=== PATIENT | male | born 1935 | race Caucasian/White ===

== ENCOUNTER 2024-05-13 12:35 | Outpatient (CLI) | payer MEDICARE, SELFPAY | END 2024-05-13 12:36 | disposition home or self-care (01) | LOC: WOUND 12:41 | PROVIDERS: PCP Internal Medicine; Visit Provider Nurse Practitioner Family | DX: S00.01XA Abrasion of scalp, initial encounter (principal); L98.492 Non-pressure chronic ulcer of skin of other sites with fat layer exposed; W18.00XA Striking against unspecified object with subsequent fall, initial encounter; Y92.002 Bathroom of unspecified non-institutional (private) residence as the place of occurrence of the external cause | CPT/HCPCS: 11042; G0463 ==

== ENCOUNTER 2024-05-23 13:19 | Outpatient (CLI) | payer MEDICARE, SELFPAY | END 2024-05-23 13:20 | disposition home or self-care (01) | LOC: WOUND 13:19 | PROVIDERS: PCP Internal Medicine; Visit Provider Nurse Practitioner Family | DX: I10 Essential (primary) hypertension (principal); L98.492 Non-pressure chronic ulcer of skin of other sites with fat layer exposed; S00.01XA Abrasion of scalp, initial encounter; W18.00XA Striking against unspecified object with subsequent fall, initial encounter | CPT/HCPCS: 97597; 97598 ==

== ENCOUNTER 2024-06-03 14:41 | Outpatient (CLI) | payer MEDICARE, SELFPAY | END 2024-06-03 14:42 | disposition home or self-care (01) | LOC: WOUND 14:42 | PROVIDERS: PCP Internal Medicine; Visit Provider Nurse Practitioner Family | DX: I10 Essential (primary) hypertension (principal); L98.492 Non-pressure chronic ulcer of skin of other sites with fat layer exposed | CPT/HCPCS: 11042 ==

== ENCOUNTER 2024-06-10 14:33 | Outpatient (CLI) | payer MEDICARE, SELFPAY | END 2024-06-10 14:34 | disposition home or self-care (01) | LOC: WOUND 14:33 | PROVIDERS: PCP Internal Medicine; Visit Provider Nurse Practitioner Family | DX: I10 Essential (primary) hypertension (principal); L98.492 Non-pressure chronic ulcer of skin of other sites with fat layer exposed | CPT/HCPCS: 97597 ==

== ENCOUNTER 2024-06-17 14:37 | Outpatient (CLI) | payer MEDICARE, SELFPAY | END 2024-06-17 14:38 | disposition home or self-care (01) | LOC: WOUND 14:37 | PROVIDERS: PCP Internal Medicine; Visit Provider Nurse Practitioner Family | DX: I10 Essential (primary) hypertension (principal); L98.492 Non-pressure chronic ulcer of skin of other sites with fat layer exposed | CPT/HCPCS: 97597 ==

== ENCOUNTER 2024-06-24 14:25 | Outpatient (CLI) | payer MEDICARE, SELFPAY | END 2024-06-24 14:26 | disposition home or self-care (01) | LOC: WOUND 14:25 | PROVIDERS: PCP Internal Medicine; Visit Provider Family Medicine | DX: L98.492 Non-pressure chronic ulcer of skin of other sites with fat layer exposed (principal); I10 Essential (primary) hypertension | CPT/HCPCS: G0463 ==

== ENCOUNTER 2024-07-01 14:28 | Outpatient (CLI) | payer MEDICARE, SELFPAY | END 2024-07-01 14:29 | disposition home or self-care (01) | LOC: WOUND 14:31 | PROVIDERS: PCP Internal Medicine; Visit Provider Nurse Practitioner Family | DX: I10 Essential (primary) hypertension (principal); L98.492 Non-pressure chronic ulcer of skin of other sites with fat layer exposed | CPT/HCPCS: 11042 ==

== ENCOUNTER 2024-07-08 14:15 | Outpatient (CLI) | payer MEDICARE, SELFPAY | END 2024-07-08 14:16 | disposition home or self-care (01) | LOC: WOUND 14:15 | PROVIDERS: PCP Internal Medicine; Visit Provider Nurse Practitioner Family | DX: I10 Essential (primary) hypertension (principal); L98.492 Non-pressure chronic ulcer of skin of other sites with fat layer exposed | CPT/HCPCS: 11102; 88305 ==

== ENCOUNTER 2024-07-15 14:12 | Outpatient (CLI) | payer MEDICARE, SELFPAY | END 2024-07-15 14:13 | disposition home or self-care (01) | LOC: WOUND 14:13 | PROVIDERS: PCP Internal Medicine; Visit Provider Nurse Practitioner Family | DX: I10 Essential (primary) hypertension (principal); L98.492 Non-pressure chronic ulcer of skin of other sites with fat layer exposed | CPT/HCPCS: 11042 ==

== ENCOUNTER 2024-07-22 14:16 | Outpatient (CLI) | payer MEDICARE, SELFPAY | END 2024-07-22 14:17 | disposition home or self-care (01) | LOC: WOUND 14:16 | PROVIDERS: PCP Internal Medicine; Visit Provider Surgery | DX: I10 Essential (primary) hypertension (principal); L98.492 Non-pressure chronic ulcer of skin of other sites with fat layer exposed | CPT/HCPCS: G0463 ==

== ENCOUNTER 2024-07-29 14:17 | Outpatient (CLI) | payer MEDICARE, SELFPAY | END 2024-07-29 14:18 | disposition home or self-care (01) | LOC: WOUND 14:17 | PROVIDERS: PCP Internal Medicine; Visit Provider Nurse Practitioner Family | DX: I10 Essential (primary) hypertension (principal); L98.492 Non-pressure chronic ulcer of skin of other sites with fat layer exposed | CPT/HCPCS: 17250 ==

== ENCOUNTER 2024-08-05 13:24 | Outpatient (CLI) | payer MEDICARE, SELFPAY | END 2024-08-05 13:25 | disposition home or self-care (01) | PROVIDERS: PCP Internal Medicine; Visit Provider Nurse Practitioner Family | DX: I10 Essential (primary) hypertension (principal); L98.492 Non-pressure chronic ulcer of skin of other sites with fat layer exposed | CPT/HCPCS: G0463 ==

== ENCOUNTER 2024-08-12 14:21 | Outpatient (CLI) | payer MEDICARE, SELFPAY | END 2024-08-12 14:22 | disposition home or self-care (01) | LOC: WOUND 14:21 | PROVIDERS: PCP Internal Medicine; Visit Provider Nurse Practitioner Family | DX: I10 Essential (primary) hypertension (principal); L98.492 Non-pressure chronic ulcer of skin of other sites with fat layer exposed | CPT/HCPCS: G0463 ==

== ENCOUNTER 2024-08-17 13:45 | Outpatient (CLI) | payer MEDICARE, SELFPAY | END 2024-08-17 13:46 | disposition home or self-care (01) | LOC: WOUND 13:45 | PROVIDERS: PCP Internal Medicine; Visit Provider Nurse Practitioner Family | DX: I10 Essential (primary) hypertension (principal); L98.492 Non-pressure chronic ulcer of skin of other sites with fat layer exposed | CPT/HCPCS: 15275; Q4151 ==

== ENCOUNTER 2024-08-26 14:16 | Outpatient (CLI) | payer MEDICARE, SELFPAY | END 2024-08-26 14:17 | disposition home or self-care (01) | LOC: WOUND 14:17 | PROVIDERS: PCP Internal Medicine; Visit Provider Nurse Practitioner Family | DX: I10 Essential (primary) hypertension (principal); L98.492 Non-pressure chronic ulcer of skin of other sites with fat layer exposed | CPT/HCPCS: G0463 ==

== ENCOUNTER 2024-08-31 11:18 | Outpatient (CLI) | payer MEDICARE, SELFPAY | END 2024-08-31 11:19 | disposition home or self-care (01) | LOC: WOUND 11:18 | PROVIDERS: PCP Internal Medicine; Visit Provider Nurse Practitioner Family | DX: I10 Essential (primary) hypertension (principal); L98.492 Non-pressure chronic ulcer of skin of other sites with fat layer exposed | CPT/HCPCS: 15275; Q4151 ==

== ENCOUNTER 2024-09-07 11:26 | Outpatient (CLI) | payer MEDICARE, SELFPAY | END 2024-09-07 11:27 | disposition home or self-care (01) | LOC: WOUND 11:26 | PROVIDERS: PCP Internal Medicine; Visit Provider Nurse Practitioner Family | DX: I10 Essential (primary) hypertension (principal); L98.492 Non-pressure chronic ulcer of skin of other sites with fat layer exposed | CPT/HCPCS: G0463 ==

== ENCOUNTER 2024-09-14 11:20 | Outpatient (CLI) | payer MEDICARE, SELFPAY | END 2024-09-14 11:21 | disposition home or self-care (01) | LOC: WOUND 11:20 | PROVIDERS: PCP Internal Medicine; Visit Provider Nurse Practitioner Family | DX: I10 Essential (primary) hypertension (principal); L98.492 Non-pressure chronic ulcer of skin of other sites with fat layer exposed | CPT/HCPCS: 17250 ==

== ENCOUNTER 2024-09-21 11:35 | Outpatient (CLI) | payer MEDICARE, SELFPAY | END 2024-09-21 11:36 | disposition home or self-care (01) | LOC: WOUND 11:35 | PROVIDERS: PCP Internal Medicine; Visit Provider Family Medicine | DX: I10 Essential (primary) hypertension (principal); L98.492 Non-pressure chronic ulcer of skin of other sites with fat layer exposed | CPT/HCPCS: 15275; Q4151 ==

== ENCOUNTER 2024-09-28 11:24 | Outpatient (CLI) | payer MEDICARE, SELFPAY | END 2024-09-28 11:25 | disposition home or self-care (01) | LOC: WOUND 11:24 | PROVIDERS: PCP Internal Medicine; Visit Provider Physician Assistant | DX: I10 Essential (primary) hypertension (principal); L98.492 Non-pressure chronic ulcer of skin of other sites with fat layer exposed | CPT/HCPCS: G0463 ==

== ENCOUNTER 2024-10-05 11:17 | Outpatient (CLI) | payer MEDICARE, SELFPAY | END 2024-10-05 11:18 | disposition home or self-care (01) | LOC: WOUND 11:17 | PROVIDERS: PCP Internal Medicine; Visit Provider Nurse Practitioner Family | DX: I10 Essential (primary) hypertension (principal); L98.492 Non-pressure chronic ulcer of skin of other sites with fat layer exposed | CPT/HCPCS: G0463 ==

== ENCOUNTER 2024-10-12 11:23 | Outpatient (CLI) | payer MEDICARE, SELFPAY | END 2024-10-12 11:24 | disposition home or self-care (01) | LOC: WOUND 11:23 | PROVIDERS: PCP Internal Medicine; Visit Provider Nurse Practitioner Family | DX: I10 Essential (primary) hypertension (principal); L98.492 Non-pressure chronic ulcer of skin of other sites with fat layer exposed | CPT/HCPCS: 17250 ==